=== PATIENT | female | born 2000 | race African-American/Black ===

== ENCOUNTER 2021-05-07 20:28 | Emergency (ER) | payer OTHER ==
[~2021-05-07] VITALS: Ht 152.4 cm; Wt 68.2 kg
[2021-05-07 23:07] VITALS: BP 102/70
== END 2021-05-07 23:45 | disposition home or self-care (01) ==
LOC: EMS 20:32
DX: K62.5 Hemorrhage of anus and rectum (principal); K59.00 Constipation, unspecified
CPT/HCPCS: 99283